=== PATIENT | female | born 1985 | race Caucasian/White ===

== ENCOUNTER → 2017-01-09 | Outpatient (CLI) | payer BC | END | disposition home or self-care (01) | LOC: C.PAPS 11:09 | PROVIDERS: ATTEND Obstetrics & Gynecology | DX: Z01.419 Encounter for gynecological examination (general) (routine) without abnormal findings (principal) ==

== ENCOUNTER → 2018-01-11 | Outpatient (CLI) | payer OTHER | END | disposition home or self-care (01) | LOC: C.PAPS 14:11 | PROVIDERS: ATTEND Obstetrics & Gynecology | DX: Z12.4 Encounter for screening for malignant neoplasm of cervix (principal) ==

== ENCOUNTER 2021-06-27 12:06 | Inpatient (IN) ==
[2021-06-27] MEDS ORDERED: PENICILLIN G POTASSIUM 6 MU in DEXTROSE 5% 250 ML IV STA (12:39)
[2021-06-27] MEDS ORDERED: OXYTOCIN 30 UNITS/500 ML BAG IV PRN ×3 (12:39→23:01)
[2021-06-27] MEDS: LACTATED RINGER'S 1,000 ML IV PRN ×2 (12:45→13:46)
[2021-06-27] MEDS ORDERED: fentaNYL 2MCG/ML ROPIVACAINE 1.25MG/ML 100 ML BAG EPI ONE (12:47)
[2021-06-27] MEDS ORDERED: fentaNYL citrate 100 MCG/2 ML VIAL ONE (12:47)
[2021-06-27] MEDS ORDERED: ePHEDrine sulfate 50 MG/ML AMP ONE (12:47)
[2021-06-27] MEDS ORDERED: BUPIVACAINE 0.25% 30 ML VIAL ONE (12:47)
[2021-06-27] MEDS ORDERED: SODIUM CHLORIDE 0.9% INJ 10 ML VIAL ONE (12:47)
--- NOTE | 2021-06-27 12:49 | History & Physical Report ---
Date of Service June 27, 2021 Assessment & Plan (1) Supervision of normal first : Plan: 36 yo G1 at 39 4/7 wga presents in labor VSS Fetus cat 1 Labor - manage expectantly GBS+, pcn ordered desires epidural covid swab ordered History of Present Illness Chief Complaint: Labor Primary Care Provider: NO PCP 36 y/o G1 at 39 4/7 wga w/ TERI 2/16 by LMP presents in labor. +FM and ctx, bloody discharge. Denies LOF PNI: Hx ASD s/p repair, normal and maternal echo this Chst mass on anatomy, not seen on MFM c/s and normal growth after CF carrier GBS+ Past [employer] Hx: G1 Menarche 13, q28-30d 04/2020 neg cytology denies hx STIs Allergies Allergy/AdvReac Type Severity Reaction Status Date / Time No Known Allergies Allergy Verified 06/27/21 11:02 Home Medications Medication Instructions Recorded Confirmed Type prenat.vits,nilay,bzb-xzfy-xuory 1 tab PO DAILY 11/14/20 06/27/21 History breast pump #1 ea 02/11/21 06/27/21 Rx Patient History Medical History ASD secundum Post repair November 18, 2016- [facility] completed 6 months aspirin therapy History of acute sinusitis History of cardiac murmur History of chicken pox History of palpitations Right ventricular dilation Well woman exam with routine gynecological exam Surgical History H/O oral surgery History of repair of atrial septal defect S/P tonsillectomy and adenoidectomy Family History Mother Hyperlipidemia Hypertension Grandmother (Paternal) History of malignant neoplasm of breast History of malignant neoplasm of uterus Skin cancer Breast cancer Uterine cancer Sister Clifford's granulomatosis Father Hx of heart artery stent Other Diabetes Dyslipidemia Denies family history of Ovarian cancer Colorectal cancer Social History Smoking Status: Never smoker Hx Alcohol Use: No Hx Substance Use: No Preferred Language: Tajik Communication Ability: Effective Visual Impairment: No Limitations Hearing Ability: Normal marital status: marital status details: Antonio Wilson (37) [phone] Current Living Situation: Spouse Current Living Situation Comment: lives with spouse, dog current occupational status: employed 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 Safe at Home: Yes Childhood Exposure to Second-Hand Smoke: No Diet Comment: In generally healthy diet during the past year weight has: remained stable Dental Care, Regularly: Yes Physical Activity Frequency: 3-4 Times per Week Seatbelt Use: always Sunscreen Use: Yes Physical Exam Constitutional: WD/WN, vitals as above Genitourinary: OB Exam Abdomen: + vertex and + estimated weight (6-7) Manual OB Exam: + cervical dilation (3-4), + cervical effacement 90% and + station -2 OB Exam Monitor Tracing: + external FHT monitor used, + external uterine monitor used (q3-4) and + category I (125/mod/+accel/-decel) Results & Data ([facility]) Vital Signs (Past 12 Hours) Vital Signs Pulse BP 06/27/21 12:18 67 128/72 Laboratory Results OB Labs: Hemoglobin 12.4 g/dL (11.7-15.5) 04/08/21 Hematocrit 38.0 % (35.0-45.0) 04/08/21 Mean Corpuscular Volume 93.9 fL (80.0-100.0) 11/19/20 Platelet Count 293 Thousand/uL (140-400) 11/19/20 Rubella IgG Antibody 2.91 Index 11/19/20 HIV (1&2) Ab and P24 Ag, 4th Gener NON-REACTIVE (NON-REACTIVE) 11/19/20 Glucose 1 Hour 50 gm Load 93 mg/dL (<135) 04/08/21 OB Optional Labs: Chlamydia trachomatis RNA NOT DETECTED (NOT DETECTED) 11/19/20 Neisseria gonorrhoeae RNA NOT DETECTED (NOT DETECTED) 11/19/20 Labs Reviewed: O+ HepBsAg neg RPR NR CF positive, fob neg declined genetic screening declined AFP GBS+ Diagnostic Findings Posterior plac Coding Level of Care Code None Diagnoses Supervision of normal first Z34.00
[2021-06-27 13:13] LABS: Hematocrit (blood only) 38.7 % (37-47); Hemoglobin 13.5 g/dL (12.0-16.0); Mean Corpuscular Hemoglobin 31.6 pg (25-34); Mean Corpuscular Hgb Conc 34.9 g/dL (32-36); Mean Corpuscular Volume 90.6 fL (80-100); Platelet Count 284 K/uL (130-400); RDW Coefficient of Variation 13.3 % (11.5-14.5); RDW Standard Deviation 43.6 fL (36.4-46.3); Red Blood Count 4.27 M/uL (4.2-5.4); White Blood Count 16.02 K/uL (4.8-10.8)
[2021-06-27] MEDS ORDERED: PROMETHAZINE HCL 6.25 MG in SODIUM CHLORIDE 0.9% 50 ML IV PRN (13:48)
[2021-06-27] MEDS ORDERED: ePHEDrine sulfate 50 MG/ML AMP IV PRN (13:48)
[2021-06-27] MEDS ORDERED: diphenhydrAMINE 50 MG/ML VIAL IV PRN (13:48)
[2021-06-27] MEDS ORDERED: ONDANSETRON INJ 2 MG/ML 2 ML VIAL IV PRN (13:48)
[2021-06-27] MEDS ORDERED: NALOXONE HCL 1 MG in SODIUM CHLORIDE 0.9% 1000ML 1,000 ML IV PRN (13:48)
[2021-06-27] MEDS ORDERED: fentaNYL 2MCG/ML ROPIVACAINE 1.25MG/ML 100 ML BAG EPI PRN (13:48)
[2021-06-27] MEDS ORDERED: NALBUPHINE HCL INJ 10 MG/ML AMP IV PRN (13:48)
[2021-06-27] MEDS ORDERED: NALOXONE HCL 0.4 MG/1 ML VIAL/CARP IV PRN (13:48)
--- NOTE | 2021-06-27 13:48 | Anesthesiology Consultation ---
Date of Service June 27, 2021 Assessment & Plan Chart Review Chart Review: Patient NOT seen in Pre Admission Testing and Acceptable Risk for Labor Epidural Consults Requested none ASA ASA2 Proposed Anesthesia Anesthesia Type: Labor Epidural Risk / Benefits Reviewed With: PT / POA / Parent / Guardian, Accepts Plan and Informed Consent Obtained History Height/Weight Height: 5 ft 5 in Weight: 89.1 kg Allergies Allergy/AdvReac Type Severity Reaction Status Date / Time No Known Allergies Allergy Verified 06/27/21 11:02 Medications Home Medications Medication Instructions Recorded Confirmed Last Taken prenat.vits,nilay,bnb-qgol-znrrh 1 tab PO DAILY 11/14/20 06/27/21 Unknown breast pump #1 ea 02/11/21 06/27/21 Unknown Active Medications Generic Name Dose Route Start Last Admin Trade Name Freq PRN Reason Stop Dose Admin Lactated Ringer's 1,000 mls @ 125 mls/hr 06/27/21 12:39 06/27/21 12:45 Lr IV 06/29/21 12:38 999 mls/hr .Q8H PRN Administration L&D Protocol Protocol Past Medical History Medical History ASD secundum Post repair November 18, 2016- [facility] completed 6 months aspirin therapy History of acute sinusitis History of cardiac murmur History of chicken pox History of palpitations Right ventricular dilation Well woman exam with routine gynecological exam Exercise / Class Metabolic Activity II 4-5 Yardwork/Stairs/Walk up hill Past Family History Family History Mother Hyperlipidemia Hypertension Grandmother (Paternal) History of malignant neoplasm of breast History of malignant neoplasm of uterus Skin cancer Breast cancer Uterine cancer Sister Clifford's granulomatosis Father Hx of heart artery stent Other Diabetes Dyslipidemia Denies family history of Ovarian cancer Colorectal cancer Past Surgical History Surgical History H/O oral surgery History of repair of atrial septal defect S/P tonsillectomy and adenoidectomy Past Anesthesia History No Hx of Anesthesia Complications and No Family Hx of Anesthesia Complications History of PONV No Hx of PONV and No Hx of Motion Sickness Social History Smoking Status: Never smoker Hx Alcohol Use: No Hx Substance Use: No Physical Exam Vital Signs Last Vital Signs Temp 36.8 C 06/27/21 12:32 Pulse 67 06/27/21 12:18 Resp 18 06/27/21 12:32 BP 128/72 06/27/21 12:18 ENMT Mouth: no dentition abnormality Thyromental Distance: > or= 3.5 Finger Breadths Mallampati Class: II Neck normal visual inspection Respiratory normal respiratory effort Auscultation: lungs clear to auscultation bilaterally Cardiovascular Rate/Rhythm: regular rate and regular rhythm Psychiatric Orientation: alert Testing Laboratory Results 06/27/21 12:52
[2021-06-27] MEDS: PENICILLIN G POTASSIUM 3 MU in DEXTROSE 5% 100 ML IV PRN ×2 (16:57→20:38)
--- NOTE | 2021-06-27 17:36 | Labor Progress Brief Note ---
Date of Service June 27, 2021 Subjective Comfortable with epidural. FHT Cat 1 [place] Q 2-3 min SVE 9.5cm per RN Not yet feeling urge to push. Will continue to labor, when she feels urge will begin to push. Assessment & Plan Admission and Anticipated Discharge Date Admission Date: June 27, 2021 Results & Data ([facility]) Vital Signs (Past 12 Hours) Vital Signs Temp Pulse Resp BP Pulse Ox 06/27/21 17:33 61 100 06/27/21 17:28 67 99 06/27/21 17:24 62 117/60 06/27/21 17:23 60 100 06/27/21 17:18 63 100 06/27/21 17:13 67 100 06/27/21 17:10 60 116/58 L 06/27/21 17:08 75 100 06/27/21 17:03 73 100 06/27/21 17:00 36.8 C 20 06/27/21 16:58 57 L 100 06/27/21 16:55 61 115/59 L 06/27/21 16:53 64 100 06/27/21 16:48 61 100 06/27/21 16:43 63 100 06/27/21 16:41 65 111/59 L 06/27/21 16:38 63 100 06/27/21 16:33 67 100 06/27/21 16:30 20 06/27/21 16:28 72 100 06/27/21 16:25 68 128/64 06/27/21 16:23 65 100 06/27/21 16:18 64 100 06/27/21 16:13 61 100 06/27/21 16:09 64 121/56 L 06/27/21 16:08 71 99 06/27/21 16:03 74 99 06/27/21 16:00 36.4 C L 20 06/27/21 15:58 85 100 06/27/21 15:55 69 125/72 06/27/21 15:53 75 99 06/27/21 15:48 69 99 06/27/21 15:43 74 100 06/27/21 15:39 75 132/69 06/27/21 15:38 71 99 06/27/21 15:33 68 99 06/27/21 15:30 18 06/27/21 15:28 67 100 06/27/21 15:25 75 124/69 06/27/21 15:23 68 100 06/27/21 15:18 73 98 06/27/21 15:13 80 99 06/27/21 15:09 72 124/63 06/27/21 15:08 77 99 06/27/21 15:03 81 99 06/27/21 15:00 20 06/27/21 14:58 96 H 100 06/27/21 14:55 85 127/77 06/27/21 14:53 84 100 06/27/21 14:48 84 98 06/27/21 14:43 83 100 06/27/21 14:41 75 127/65 06/27/21 14:38 76 100 06/27/21 14:33 89 100 06/27/21 14:30 20 06/27/21 14:28 75 100 06/27/21 14:24 80 123/66 06/27/21 14:23 79 100 06/27/21 14:22 85 127/72 06/27/21 14:20 75 122/66 06/27/21 14:18 81 147/71 H 100 06/27/21 14:17 83 139/67 06/27/21 14:14 81 121/63 06/27/21 14:13 71 100 06/27/21 14:12 86 121/72 06/27/21 14:10 69 118/67 06/27/21 14:08 67 107/56 L 100 06/27/21 14:06 72 108/58 L 06/27/21 14:05 36.4 C L 20 06/27/21 14:04 69 112/57 L 06/27/21 14:03 70 99 06/27/21 14:02 70 108/56 L 06/27/21 14:00 65 20 108/55 L 06/27/21 13:58 58 L 98 06/27/21 13:54 102 H 94 06/27/21 13:53 101 H 98 06/27/21 12:32 36.8 C 18 06/27/21 12:18 36.8 C 67 20 128/72 Coding Level of Care Code None
--- NOTE | 2021-06-27 22:01 | Delivery Summary ---
Vaginal Delivery Summary Date of Service June 27, 2021 Vaginal Delivery Summary (R labial laceration) PREOPERATIVE DIAGNOSIS: 1. Single intrauterine at 39 4/7 wga 2. Labor 3. GBS+ 4. Maternal hx ASD s/p repair 5. CF carrier 6. Resolved chest mass POSTOPERATIVE DIAGNOSIS: 1. Single intrauterine at 39 4/7 wga 2. Labor 3. GBS+ 4. Maternal hx ASD s/p repair 5. CF carrier 6. Resolved chest mass 7. Delivered PROCEDURE: 1. Normal spontaneous vaginal delivery. SURGEON: Valery Thompson MD ANESTHESIA: Epidural. ESTIMATED BLOOD LOSS: 400 mL (primarily from laceration) FLUIDS: Continuous LR. URINE OUTPUT: None. COMPLICATIONS: None. CONDITION: Stable. INDICATIONS: 36 y/o G1 at 39 4/7 wga presented for cervix check in clinic and found to be 3cm and laboring. She was then sent to L&D where she was admitted and received an epidural for pain control and started on penicillin for GBS+ status. She spontaneously ruptured membranes and continued to progress on her own until she was complete. Contractions did space out a bit at that time and so pitocin was started to assist with pushing. She then began to feel pressure to push. FINDINGS: A viable male , weight pending with Apgars of 8 and 10 at 1 and 5 minutes respectively. SPECIMEN: Cord blood OPERATIVE REPORT: The patient progressed to 10 cm, 100% effaced and +1 station, pushed over intact perineum with anesthesia to deliver a viable male infant, Apgars as above. Head of delivered in PRINCESS position. No nuchal cord was present. Body and shoulders were delivered without difficulty. was delivered to maternal abdomen and nursing staff. Delayed cord clamping was performed for 60 seconds. Cord was clamped and cut. Cord blood was obtained. Placenta delivered spontaneously intact with 3-vessel cord. IV oxytocin and fundal massage were given for excellent hemostasis. Vagina, cervix, perineum, and placenta were inspected. A mhgecjw-pbo-ywrflyx R labial laceration was noted where the inner right labia had torn into the introitus but at the superior as pect did connect to an opening of the outer labia as well. The outer labial defect was repaired using 4-0 Vicryl. The inner labial defect was then re- approximated and made hemostatic using 3-0 Vicryl. There was excellent hemostasis. Sponge and needle counts correct x2. No sponges were left behind. Mother and stable in immediate period. [facility] Vaginal Delivery Charge Vaginal Delivery Codes: 00632 global code for the antepartum, delivery, and post- Delivery Type Details: (R labial laceration)
[2021-06-27] MEDS ORDERED: BENZOCAINE 20% AER SPR 82.5 GM CAN EXT PRN (23:01)
[2021-06-27] MEDS ORDERED: bisacodyL 10 MG SUPP PR PRN (23:01)
[2021-06-27] MEDS ORDERED: HYDROCORTISONE ACETATE 25 MG SUPP PR PRN (23:01)
[2021-06-27] MEDS ORDERED: SUPERCREAM 0.870% 15 GM JAR EXT PRN (23:01)
[2021-06-27] MEDS ORDERED: DIPHTHERIA/TETANUS/PERTUSSIS 0.5 ML SYR/VIAL IM ONE (23:01)
[2021-06-27] MEDS ORDERED: ACETAMINOPHEN 325 MG TAB PO PRN (23:01)
--- NOTE | 2021-06-27 23:48 | Anesthesia Procedure Note ---
Date of Service June 27, 2021 Anesthesia Post Epidural Note Vital Signs Vital Signs: Temp Pulse Resp BP Pulse Ox 36.9 C 71 20 123/58 L 99 06/27/21 20:30 06/27/21 23:39 06/27/21 22:39 06/27/21 23:39 06/27/21 21:53 Pain Intensity Bilateral Abdomen: Pain Intensity: 0 Notes Mental Status: alert / awake / arousable Nausea / Vomiting: adequately controlled Pain: adequately controlled Airway Patency, RR, SpO2: stable & adequate BP & HR: stable & adequate Hydration State: stable & adequate Neuraxial Anesthesia: was administered and sensory block is resolving Anesthetic Complications: no major complications apparent and Pt Satisfied with anesthetic care Epidural: Removed without complications and With tip intact
[2021-06-28 07:01] LABS: Hematocrit (blood only) 33.3 % (37-47); Hemoglobin 11.4 g/dL (12.0-16.0); Mean Corpuscular Hemoglobin 31.3 pg (25-34); Mean Corpuscular Hgb Conc 34.2 g/dL (32-36); Mean Corpuscular Volume 91.5 fL (80-100); Mean Platelet Volume 10.1 fL (7.4-10.4); Platelet Count 271 K/uL (130-400); RDW Coefficient of Variation 13.5 % (11.5-14.5); Red Blood Count 3.64 M/uL (4.2-5.4)
--- NOTE | 2021-06-28 07:12 | Obstetrical Progress Note ---
Date of Service <Yohan Sears MD - Last Filed: 06/28/21 07:11> June 28, 2021 Assessment & Plan <Yohan Sears MD - Last Filed: 06/28/21 07:11> (1) Encounter for care and examination after delivery: PPD 1: stable, routine management * patient voiding and ambulating without difficulty * pain well controlled on analgesia * tolerating regular diet * * GBS +, RI, Rh+ * reassess d/c readiness tomorrow <Valery Thompson MD - Last Filed: 06/28/21 07:26> (1) Encounter for care and examination after delivery: Subjective <Yohan Sears MD - Last Filed: 06/28/21 07:11> Lacy is a 36-year-old primigravida who is now PPD 1 following spontaneous vaginal delivery at 39.4 weeks. Reports feeling well overall this morning. 2/10 pain well managed on analgesics. Voiding +. Tolerating meals well and able to ambulate without assistance. Lochia is much improved this morning. . Review of Systems Denies fever, chills, sweats Denies shortness of breath, difficulty breathing, chest pain, palpitations, chest pressure. Denies breast pain. Denies dysuria. Denies headache or changes in vision Physical Exam <Yohan Sears MD - Last Filed: 06/28/21 07:11> General: Alert, oriented. No acute distress. Cardiac: Regular rate and rhythm, no murmurs/rubs/gallops. Respiratory: Clear to auscultation bilaterally a/p, no wheezes/rales/rhonchi. No increased work of breathing. Symmetrical chest rise. No respiratory distress. Abdomen: Soft, nontender, nondistended. Bowel sounds present. Uterus: Uterine fundus firm, palpable 2 cm below umbilicus. Lower Extremities: No lower extremity edema or swelling. No deep calf pain. Joe's negative bilaterally.. Results & Data ([facility]) <Yohan Sears MD - Last Filed: 06/28/21 07:11> Vital Signs (Past 12 Hours) Vital Signs Temp Pulse Pulse Resp BP BP Pulse Ox 06/28/21 03:16 36.9 C 63 20 114/69 98 06/28/21 00:45 37.1 C 66 20 119/68 97 06/27/21 23:54 67 131/66 06/27/21 23:39 71 123/58 L 06/27/21 23:24 68 122/64 06/27/21 23:09 72 125/60 06/27/21 22:54 63 118/60 06/27/21 22:39 69 20 120/67 06/27/21 22:24 59 L 20 120/66 06/27/21 22:09 68 20 120/70 06/27/21 21:54 68 20 114/60 06/27/21 21:53 71 99 06/27/21 21:48 67 99 06/27/21 21:43 70 99 06/27/21 21:38 71 98 06/27/21 21:33 71 98 06/27/21 21:28 72 99 06/27/21 21:25 63 146/91 H 06/27/21 21:23 78 96 06/27/21 21:19 90 86 L 06/27/21 21:18 62 100 06/27/21 21:13 61 100 06/27/21 21:10 58 L 138/78 06/27/21 21:08 61 99 06/27/21 21:03 60 99 06/27/21 21:00 20 06/27/21 20:58 63 99 06/27/21 20:54 63 121/74 06/27/21 20:53 63 98 06/27/21 20:48 85 100 06/27/21 20:43 64 99 06/27/21 20:41 61 132/75 06/27/21 20:38 64 99 06/27/21 20:33 69 98 06/27/21 20:30 36.9 C 20 06/27/21 20:28 73 99 06/27/21 20:24 62 122/74 06/27/21 20:23 61 99 06/27/21 20:18 56 L 99 06/27/21 20:13 53 L 97 06/27/21 20:09 66 128/79 06/27/21 20:08 64 98 06/27/21 20:03 74 99 06/27/21 20:00 20 06/27/21 19:58 66 99 06/27/21 19:55 70 135/83 06/27/21 19:53 67 99 06/27/21 19:48 68 98 06/27/21 19:43 65 99 06/27/21 19:40 67 128/78 06/27/21 19:38 75 99 06/27/21 19:33 74 100 06/27/21 19:28 66 100 06/27/21 19:26 65 135/81 06/27/21 19:23 71 99 06/27/21 19:18 79 100 06/27/21 19:13 67 100 06/27/21 19:09 77 130/77 06/27/21 19:08 74 100 <Valery Thompson MD - Last Filed: 06/28/21 07:26> Co-Signing Physician Notes Resident Physician Supervision Note: I interviewed and examined the patient. Discussed with Dr. Sears and agree with findings and plan as documented in the note. Any exceptions or clarifications are listed here: PP1 s/p , doing well. VSS, exam benign and wnl. Continue routine pp care Documented By: Valery Thompson MD Resident Activity Tracking <Yohan Sears MD - Last Filed: 06/28/21 07:11> Resident Involvement: Resident Care Provided Care Provided: OB Delivery
[2021-06-28] MEDS: DOCUSATE SODIUM 100 MG CAP PO SCH ×2 (09:02→20:13)
[2021-06-28] MEDS: PRENATAL VITAMIN 1 TAB PO SCH (09:02)
[2021-06-28] MEDS: IBUPROFEN 600 MG TAB PO PRN (18:58)
[2021-06-28] MEDS ORDERED: bisacodyL 5 MG TABEC PO SCH (20:00)
[2021-06-29] MEDS: IBUPROFEN 600 MG TAB PO PRN ×2 (00:35→12:20)
--- NOTE | 2021-06-29 07:39 | Obstetrical Progress Note ---
Date of Service <Yohan Sears MD - Last Filed: 06/29/21 07:39> June 29, 2021 Assessment & Plan <Yohan Sears MD - Last Filed: 06/29/21 07:39> (1) Encounter for care and examination after delivery: PPD 2: stable, routine management * patient voiding and ambulating without difficulty * pain well controlled on analgesia * tolerating regular diet * * GBS +, RI, Rh+ * anticipate d/c today * 6-week outpatient OB follow-up <Allison Faustin DO - Last Filed: 06/29/21 08:26> (1) Encounter for care and examination after delivery: Subjective <Yohan Sears MD - Last Filed: 06/29/21 07:39> Lacy is a 36-year-old primigravida who is now PPD 2 following spontaneous vaginal delivery at 39.4 weeks. Reports feeling well overall this morning. 1/10 pain well managed on analgesics. Voiding +. Tolerating meals well and able to ambulate without assistance. Reports light lochia this morning. . Review of Systems Denies fever, chills, sweats Denies shortness of breath, difficulty breathing, chest pain, palpitations, chest pressure. Denies breast pain. Denies dysuria. Denies headache or changes in vision Physical Exam <Yohan Sears MD - Last Filed: 06/29/21 07:39> General: Alert, oriented. No acute distress. Cardiac: Regular rate and rhythm, no murmurs/rubs/gallops. Respiratory: Clear to auscultation bilaterally a/p, no wheezes/rales/rhonchi. No increased work of breathing. Symmetrical chest rise. No respiratory distress. Abdomen: Soft, nontender, nondistended. Bowel sounds present. Uterus: Uterine fundus firm, palpable 1 cm below umbilicus. Lower Extremities: No lower extremity edema or swelling. No deep calf pain. Joe's negative bilaterally.. Results & Data ([facility]) <Yohan Sears MD - Last Filed: 06/29/21 07:39> Vital Signs (Past 12 Hours) Vital Signs Temp Pulse Resp BP Pulse Ox 06/29/21 00:30 36.7 C 61 20 110/69 98 <Allison Faustin DO - Last Filed: 06/29/21 08:26> Co-Signing Physician Notes Resident Physician Supervision Note: I interviewed and examined the patient. Discussed with Dr. Sears and agree with findings and plan as documented in the note. Any exceptions or clarifications are listed here: PPD#2 doing well. DC home. Reviewed inst ructions, followup in 6w. Documented By: Allison Faustin DO Resident Activity Tracking <Yohan Sears MD - Last Filed: 06/29/21 07:39> Resident Involvement: Resident Care Provided Care Provided: OB Delivery
[2021-06-29] MEDS: PRENATAL VITAMIN 1 TAB PO SCH (08:01)
[2021-06-29] MEDS: DOCUSATE SODIUM 100 MG CAP PO SCH (08:01)
== END 2021-06-29 14:46 | disposition home or self-care (01) | DRG 807 ==
LOC: OPB 12:06 → 4S1 12:09 → 4S2 06-28 00:42

== ENCOUNTER 2024-05-16 04:51 | Inpatient (IN) ==
[2024-05-16] MEDS ORDERED: OXYTOCIN 30 UNITS/NSS 30 UNITS/500 ML BAG IV PRN ×2 (05:45→10:42)
[2024-05-16] MEDS ORDERED: LIDOCAINE 1% LOCAL 20 ML VIAL INFIL PRN (05:45)
--- NOTE | 2024-05-16 05:47 | History & Physical Report ---
Date of Service May 16, 2024 Assessment & Plan (1) Elderly multigravida: Plan: Admit to L&D. EFM/toco/labs. Desires epidural, and would like to do this criselda - prefers this before starting any pitocin for augmentation of labor. History of Present Illness Chief Complaint: rupture of membranes Primary Care Provider: Stevie Norris MD 39yo @ 40 07/22, gush of clear fluid at home at approx 12:30a. Has had pink tinge to fluid, no jaun bleeding. + movement, +contractions Allergies Allergy/AdvReac Type Severity Reaction Status Date / Time No Known Allergies Allergy Verified 05/11/24 11:08 Home Medications Medication Instructions Recorded Confirmed Type prenat.vits,nilay,cla-uxrn-kosrx 1 tab PO DAILY 10/24/22 05/16/24 History Patient History Medical History Subchorionic hematoma in first trimester Encounter for health maintenance examination Left wrist pain GBS (group B Streptococcus carrier), +RV culture, currently Elevated blood pressure reading Sciatic pain Supervision of normal first History of chicken pox History of cardiac murmur History of acute sinusitis History of palpitations ASD secundum Post repair November 18, 2016- [facility] completed 6 months aspirin therapy Surgical History H/O oral surgery S/P tonsillectomy and adenoidectomy Family History Mother Hyperlipidemia Hypertension Grandmother (Paternal) History of malignant neoplasm of breast History of malignant neoplasm of uterus Skin cancer Breast cancer Uterine cancer Sister Clifford's granulomatosis Father Hx of heart artery stent Other Diabetes Dyslipidemia Denies family history of Ovarian cancer Colorectal cancer Social History Smoking Status: Never smoker Second Hand Exposure: No; Do You Dip or Chew Tobacco: No; Hx Alcohol Use: No Hx Substance Use: No Preferred Language: Barbadian Communication Ability: Effective Visual Impairment: No Limitations Hearing Ability: Normal Business Office Representative Required: No Beliefs That Will Affect Care: None marital status: marital status details: Antonio Wilson (40) [phone] Current Living Situation: Spouse and Family Current Living Situation Comment: lives with spouse, child, dog current occupational status: employed 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 Constitutional: WD/WN, vitals as above Respiratory: normal respiratory effort, lungs clear to auscultation no respiratory distress Cardiovascular: Rate/Rhythm: regular rate and regular rhythm Gastrointestinal (Abdomen): Inspection/Auscultation: abdomen normal to inspection Percussion/Palpation: abdomen soft; abdomen nontender Gravid. No s/s chorio or abruption. Skin: no rashes, warm and dry Psychiatric: A+Ox3, euthymic affect Results & Data Vital Signs (Past 12 Hours) Vital Signs Temp Pulse Resp BP 05/16/24 05:14 36.8 C 20 05/16/24 05:10 81 132/71 Coding Level of Care Code None Diagnoses Elderly multigravida O09.529
[2024-05-16 06:22] LABS: Hematocrit (blood only) 35.2 % (37.0-47.0); Hemoglobin 12.1 g/dl (12.0-16.0); Mean Corpuscular Hemoglobin 30.9 pg (25.0-34.0); Mean Corpuscular Hgb Conc 34.4 g/dL (32.0-36.0); Mean Corpuscular Volume 89.8 fL (80.0-100.0); Mean Platelet Volume 9.5 fL (9.4-12.4); Platelet Count 280 K/uL (130-400); RDW Coefficient of Variation 13.6 % (11.5-14.5); RDW Standard Deviation 44.6 fL (36.4-46.3); Red Blood Count 3.92 M/uL (4.20-5.40); White Blood Count 11.09 K/ul (4.8-10.8)
[2024-05-16] MEDS: LACTATED RINGER'S 1,000 ML IV SCH (06:28)
[2024-05-16] MEDS: fentANYL 2 MCG/ML BUPIVacaine 0.125%-NSS 100ML BAG ONE (07:13)
[2024-05-16] MEDS: LIDOCAINE 2%/EPINEPHRINE 1:200,000 20 ML PF ONE (07:14)
--- NOTE | 2024-05-16 07:28 | Anesthesiology Consultation ---
Date of Service May 16, 2024 Assessment & Plan Chart Review Chart Review: Acceptable Risk for Labor Epidural Consults Requested none History Height/Weight Height: 5 ft 5 in Weight: 95.254 kg Allergies Allergy/AdvReac Type Severity Reaction Status Date / Time No Known Allergies Allergy Verified 05/11/24 11:08 Medications Home Medications Medication Instructions Recorded Confirmed Last Taken prenat.vits,nilay,dkf-zedm-zbjml 1 tab PO DAILY 10/24/22 05/16/24 Unknown Active Medications Generic Name Dose Route Start Last Admin Trade Name Freq PRN Reason Stop Dose Admin Lactated Ringer's 1,000 mls @ 50 mls/hr 05/16/24 06:15 05/16/24 07:07 Lr IV 05/17/24 06:14 50 mls/hr .Q20H MELISA Infusion Past Medical History Medical History Subchorionic hematoma in first trimester Encounter for health maintenance examination Left wrist pain GBS (group B Streptococcus carrier), +RV culture, currently Elevated blood pressure reading Sciatic pain Supervision of normal first History of chicken pox History of cardiac murmur History of acute sinusitis History of palpitations ASD secundum Post repair November 18, 2016- [facility] completed 6 months aspirin therapy Past Family History Family History Mother Hyperlipidemia Hypertension Grandmother (Paternal) History of malignant neoplasm of breast History of malignant neoplasm of uterus Skin cancer Breast cancer Uterine cancer Sister Clifford's granulomatosis Father Hx of heart artery stent Other Diabetes Dyslipidemia Denies family history of Ovarian cancer Colorectal cancer Past Surgical History Surgical History H/O oral surgery S/P tonsillectomy and adenoidectomy Social History Smoking Status: Never smoker Do You Dip or Chew Tobacco: No Hx Alcohol Use: No Hx Substance Use: No Physical Exam Vital Signs Last Vital Signs Temp 36.8 C 05/16/24 05:14 Pulse 96 H 05/16/24 07:25 Resp 20 05/16/24 05:14 BP 147/75 H 05/16/24 07:25 Pulse Ox 100 05/16/24 07:22 Testing Laboratory Results 05/16/24 06:06
[2024-05-16] MEDS ORDERED: fentaNYL citrate PF 100 MCG/2 ML VIAL EPI PRN (07:30)
[2024-05-16] MEDS ORDERED: ePHEDrine sulfate 50 MG/ML AMP IV PRN (07:30)
[2024-05-16] MEDS ORDERED: SODIUM CHLORIDE 0.9% PF INJ 10 ML VIAL EPI PRN (07:30)
[2024-05-16] MEDS ORDERED: BUPIVACAINE 0.25% PF 30 ML VIAL EPI PRN (07:30)
[2024-05-16] MEDS ORDERED: ROPIVACAINE 0.5% PF 5 MG/ML 20 ML VIAL EPI PRN (07:30)
[2024-05-16] MEDS ORDERED: fentANYL 2 MCG/ML BUPIVacaine 0.125%-NSS 100ML BAG EPI PRN (07:30)
[2024-05-16] MEDS ORDERED: NALBUPHINE HCL INJ 10 MG/ML AMP IV PRN (07:30)
[2024-05-16] MEDS ORDERED: NALOXONE HCL 0.4 MG/1 ML VIAL/CARP IV PRN (07:30)
[2024-05-16] MEDS ORDERED: diphenhydrAMINE 50 MG/ML VIAL IV PRN (07:30)
[2024-05-16] MEDS ORDERED: LIDOCAINE 2% MPF LOCAL 5 ML VIAL EPI PRN (07:30)
[2024-05-16] MEDS ORDERED: NALOXONE HCL 1 MG in SODIUM CHLORIDE 0.9% 1,000 ML IV PRN (07:30)
--- NOTE | 2024-05-16 07:40 | Labor Progress Brief Note ---
Date of Service May 16, 2024 Subjective now comfortable with epidural Assessment & Plan (1) PROM (premature rupture of membranes): Plan no labor pattern, start pitocin, pt agreeable. Admission and Anticipated Discharge Date Admission Date: May 16, 2024 Physical Exam Constitutional: WD/WN, vitals as above Genitourinary: Manual OB Exam: + cervical dilation (4), + cervical effacement 50%, + station -2 and + amniotic fluid (?forebag, reassess next check) clear OB Exam Monitor Tracing: + external FHT monitor used, + external uterine monitor used (irreg, not traced well), + category I and + normal FHT variability Results & Data Vital Signs (Past 12 Hours) Vital Signs Temp Pulse Resp BP Pulse Ox 05/16/24 07:37 68 100 05/16/24 07:33 94 H 113/71 05/16/24 07:32 96 H 100 05/16/24 07:27 110 H 141/74 H 100 05/16/24 07:25 96 H 147/75 H 05/16/24 07:23 95 H 133/69 05/16/24 07:22 93 H 100 05/16/24 07:21 96 H 138/70 05/16/24 07:19 100 H 144/69 H 05/16/24 07:17 97 05/16/24 07:17 116 H 05/16/24 07:17 90 138/70 05/16/24 07:15 106 H 131/72 05/16/24 07:13 90 146/70 H 05/16/24 07:12 86 100 05/16/24 07:11 81 122/62 05/16/24 07:09 67 118/59 L 05/16/24 07:07 63 123/69 100 05/16/24 07:02 69 100 05/16/24 06:57 70 100 05/16/24 06:52 66 99 05/16/24 06:34 62 99 05/16/24 06:29 72 97 05/16/24 05:14 98.2 F 20 05/16/24 05:10 81 132/71 Coding Level of Care Code None Diagnoses PROM (premature rupture of membranes) O42.90
[2024-05-16] MEDS: ePHEDrine sulfate 50 MG/ML AMP ONE (07:41)
[2024-05-16] MEDS: SODIUM CHLORIDE 0.9% PF INJ 10 ML VIAL ONE (07:41)
[2024-05-16] MEDS: BUPIVACAINE 0.25% PF 30 ML VIAL ONE (07:41)
[2024-05-16] MEDS: fentaNYL citrate PF 100 MCG/2 ML VIAL ONE (07:41)
[2024-05-16] MEDS ORDERED: ONDANSETRON INJ 2 MG/ML 2 ML VIAL IV PRN (07:47)
[2024-05-16] MEDS: OXYTOCIN 30 UNITS/NSS 30 UNITS/500 ML BAG IV PRN (08:46)
[2024-05-16] MEDS: ONDANSETRON INJ 2 MG/ML 2 ML VIAL ONE (09:38)
[2024-05-16] MEDS ORDERED: bisacodyL 10 MG SUPP PR PRN (10:42)
[2024-05-16] MEDS ORDERED: HYDROCORTISONE ACETATE 25 MG SUPP PR PRN (10:42)
[2024-05-16] MEDS ORDERED: ACETAMINOPHEN 325 MG TAB PO PRN (10:42)
[2024-05-16] MEDS ORDERED: BENZOCAINE 20% SPRY 85 APPLN/85 GM CAN EXT PRN (10:42)
--- NOTE | 2024-05-16 10:42 | Delivery Summary ---
Vaginal Delivery Summary Date of Service May 16, 2024 Vaginal Delivery Summary The patient dilated to complete and pushed to deliver a viable female infant Apgars 8 and 9 via over intact perineum. Mouth and nose bulb suctioned at perineum. Shoulders and body delivered with ease. was vigorous and crying at . Cord clamped at 30 seconds of life and infant to maternal abdomen where the cord was then doubly clamped and cut. Placenta delivered spontaneously and intact, three-vessel cord. Small left periurethral laceration repaired with 4-0 vicryl, hemostasis excellent. Hemostasis achieved with dilute pitocin and uterine massage. Cervix and sulci intact. QBL 38 cc. Mother and baby stable in recovery. [facility] Vaginal Delivery Charge Delivery Type Details:
--- NOTE | 2024-05-16 11:30 | Anesthesia Procedure Note ---
Date of Service May 16, 2024 Anesthesia Post Epidural Note Vital Signs Vital Signs: Temp Pulse Resp BP Pulse Ox 36.4 C L 59 L 20 108/57 L 98 05/16/24 07:30 05/16/24 11:18 05/16/24 10:48 05/16/24 11:18 05/16/24 10:27 Notes Mental Status: alert / awake / arousable Nausea / Vomiting: adequately controlled Pain: adequately controlled Airway Patency, RR, SpO2: stable & adequate BP & HR: stable & adequate Hydration State: stable & adequate Neuraxial Anesthesia: was administered and sensory block is resolving Anesthetic Complications: no major complications apparent and Pt Satisfied with anesthetic care Epidural: Removed without complications and With tip intact
[2024-05-16] MEDS: LIDOCAINE 2%/EPINEPHRINE 1:200,000 20 ML PF EPI STA (11:54)
[2024-05-16] MEDS: BUPIVACAINE 0.25% PF 30 ML VIAL EPI STA (11:54)
[2024-05-16] MEDS: fentaNYL citrate PF 100 MCG/2 ML VIAL EPI STA (11:54)
[2024-05-16] MEDS: DIPHTHER/TETAN/PERTUS Vaccine (Tdap, Adol/Adult) 0.5mL IM ONE (11:55)
[2024-05-16] MEDS: SODIUM CHLORIDE 0.9% PF INJ 10 ML VIAL EPI STA (11:55)
[2024-05-16] MEDS: DOCUSATE SODIUM 100 MG CAP PO SCH (20:32)
[2024-05-16] MEDS: IBUPROFEN 600 MG TAB PO PRN (23:31)
--- NOTE | 2024-05-17 06:10 | Obstetrical Progress Note ---
Date of Service May 17, 2024 Assessment & Plan (1) Encounter for care and examination after delivery: Plan Encourage ambulation Encourage breast feeding Pain meds as needed Anticipate DC to home today Admission and Anticipated Discharge Date Admission Date: May 16, 2024 Supervising Physician Co-Signing Physician Notes Patient seen with resident and agree with the above findings and plan. Patient doing well and stable for discharge Subjective Pt is 39 yo post- day 1 s/p at 40w2d Ambulation:In and out of room Voiding:voiding normally Passing gas: yes BM: no Diet tolerance:regular diet Lochia:bloody, no clots Feeding type: breast Current pain level: 0-1/10 improved with ibuprofen Resting comfortably this morning in NAD. Denies PEREZ, CP, SOB, N/V/D, LE pain/swelling. Review of Systems Review of Systems: As per HPI Physical Exam Constitutional: WD/WN, vitals as above Respiratory: normal respiratory effort, lungs clear to auscultation Cardiovascular: RRR, no murmur, no edema Gastrointestinal (Abdomen): normal bowel sounds, soft, nontender, no hepatosplenomegaly Uterine fundus firm and at level of umbilicus Neurologic: PERRL, EOMI, accommodation nl, no face palsy, no dysarthria Moving all 4 extremities on command Psychiatric: A+Ox3, euthymic affect Results & Data Vital Signs (Past 12 Hours) Vital Signs Temp Pulse Resp BP Pulse Ox O2 Del Method 05/17/24 03:10 36.5 C 62 18 120/74 97 Room Air 05/16/24 23:20 36.4 C L 65 17 121/76 97 Room Air 05/16/24 19:50 36.5 C 62 16 119/74 99 Room Air Resident Activity Tracking Resident Involvement: Resident Care Provided Care Provided: Adult Hospital Medicine
[2024-05-17 08:18] VITALS: BP 116/77; PULSE 56; RESP 16; TEMP 97.9; O2SAT 99
[2024-05-17] MEDS: PRENATAL VITAMIN 1 TAB PO SCH (08:47)
[2024-05-17] MEDS ORDERED: NON-FORMULARY MEDICATION (Prenat.Vits,Cal,Min-Iron-Folic tablet) PO SCH (09:00)
[2024-05-17] MEDS ORDERED: bisacodyL 5 MG TABEC PO SCH (20:00)
== END 2024-05-17 12:50 | disposition home or self-care (01) | DRG 807 ==
LOC: OPB 04:51 → 4S1 04:57 → 4E2 13:06